=== PATIENT | male | born 1935 ===

== ENCOUNTER 2018-01-22 11:00 | Inpatient (IN) | payer OTHER ==
[~2018-01-22] VITALS: Ht 180.3 cm; Wt 94.3 kg
[~2018-01-22 11:00] MED LIST: AMBIEN10 MG PO; CIPRO750 MG PO; Colace 100MG PO; NEURONTIN PO; PERCOCET 5/3251 TAB PO
[2018-01-22] MEDS ORDERED: ZOCOR20 MG PO (14:19)
[2018-01-22] MEDS ORDERED: BENICAR20 MG PO (14:19)
[2018-01-22] MEDS ORDERED: IRBESARTAN150 MG PO (14:19)
[2018-01-29] MEDS ORDERED: DOCUSATE SODIU100 MG PO (07:51)
[2018-01-29] MEDS ORDERED: GABAPENTIN800 MG PO (07:51)
[2018-01-29] MEDS ORDERED: AMOX-CLAV 875-1 EACH PO (07:52)
[2018-01-29] MEDS ORDERED: PERCOCET 5-3251 EACH PO (07:53)
[2018-01-29] MEDS ORDERED: CLONAZEPAM1 MG PO (07:53)
[2018-01-29] MEDS ORDERED: MEDROLPACK PO (12:11)
== END 2018-01-29 14:31 | DRG 460 ==
LOC: O/R 01-28 06:18 → SURG 01-28 06:18 → SURH 01-28 11:00 → SURG 01-28 19:40
PROVIDERS: Orthopaedic Surgery Orthopaedic Surgery of the Spine
PROC: 0ST40ZZ Resection of Lumbosacral Disc, Open Approach (ICD-10-PCS; 2018-01-28)
PROC: 07DS3ZZ Extraction of Vertebral Bone Marrow, Percutaneous Approach (ICD-10-PCS; 2018-01-28)
PROC: 0SG30AJ Fusion of Lumbosacral Joint with Interbody Fusion Device, Posterior Approach, Anterior Column, Open Approach (ICD-10-PCS; principal; 2018-01-28 16:00)
DX: M47.817 Spondylosis without myelopathy or radiculopathy, lumbosacral region (principal); M48.061 Spinal stenosis, lumbar region without neurogenic claudication; I10 Essential (primary) hypertension; M51.17 Intervertebral disc disorders with radiculopathy, lumbosacral region

== ENCOUNTER 2021-11-14 05:35 | Day surgery (SDC) | payer OTHER ==
[~2021-11-14] VITALS: Ht 177.8 cm; Wt 89.4 kg
[~2021-11-14 05:35] MED LIST changes: +AMOX-CLAV 875-1 EACH PO; +BENICAR20 MG PO; +CLONAZEPAM1 MG PO; +DILTIAZEM ER180 M3 PO; +DOCUSATE SODIU100 MG PO; +FUSION PLUS CA1 EACH PO; +GABAPENTIN800 MG PO; +IRBESARTAN150 MG PO; +LASIX20 MG PO; +MEDROLPACK PO; +PERCOCET 5-3251 EACH PO; +TAMS0.4C PO; +ZESTRIL40 M1 PO; +ZOCOR20 MG PO
== END 2021-11-14 12:00 | disposition home or self-care (01) ==
LOC: CIR.AMB 05:35
PROVIDERS: ATTEND Specialist
DX: N62 Hypertrophy of breast (principal); Z53.29 Procedure and treatment not carried out because of patient's decision for other reasons; Z91.041 Radiographic dye allergy status; Z91.013 Allergy to seafood; I10 Essential (primary) hypertension; E78.5 Hyperlipidemia, unspecified; Z20.822 Contact with and (suspected) exposure to COVID-19